=== PATIENT | female | born 1960 | race Two or more races ===

== ENCOUNTER 2021-02-08 05:37 | Inpatient (IN) | payer BC ==
[~2021-02-08] VITALS: Ht 165.1 cm; Wt 29.6 kg
[2021-02-08] MEDS ORDERED: methylPREDNISolone SOD SUCC 125 MG/2 ML VL IV ONE (06:00)
[2021-02-08 06:32] LABS: Basophils # (auto) 0.1 10 ^3/uL (0-0.2); Basophils % (auto) 1.2 % (0.0-2.0); Eosinophils # (auto) 0.3 10 ^3/uL (0-0.8); Hematocrit 39.6 % (36.0-46.0); Hemoglobin 13.9 g/dL (12.2-16.2); Lymphocytes # (auto) 2.7 10 ^3/uL (0.4-5.4); Lymphocytes % (auto) 39.7 % (10.0-50.0); Mean Corpuscular Hemoglobin 32.2 pg (28.0-32.0); Mean Corpuscular Hgb Conc. 35.1 g/dL (32.0-36.0); Mean Corpuscular Volume 91.8 fL (80.0-100.0); Monocytes # (auto) 0.6 10 ^3/uL (0-1.3); Monocytes % (auto) 9.1 % (0.0-12.0); Neutrophils # (auto) 3.1 10 ^3/uL (1.6-8.6); Nucleated Red Blood Cells % 0.1 %; Platelet Count (auto) 227 10^3/uL (140-450); Red Blood Cells 4.31 10^6/uL (4.0-5.20); Red Cell Distribution Width 12.8 % (11.8-14.3); White Blood Cell 6.8 10^3/uL (4.4-10.8)
[2021-02-08] MEDS ORDERED: cloNIDine HCL 0.1 MG TAB ONE (06:39)
[2021-02-08 06:44] LABS: Alanine Aminotransferase 28 U/L (13-56); Albumin 3.8 g/dL (3.4-5.0); Anion Gap 5 (5-15); Aspartate Aminotransferase 32 U/L (15-37); BUN/Creatinine Ratio 9.8; Blood Urea Nitrogen 9 mg/dL (7-18); Calcium 9.5 mg/dL (8.5-10.1); Carbon Dioxide 30 mmol/L (21-32); Chloride 105 mmol/L (98-107); GFR African American 81 mL/min; GFR Non-African American 67 mL/min; Glucose 102 mg/dL (74-106); Potassium 4.2 mmol/L (3.5-5.1); Sodium 140 mmol/L (136-145)
[2021-02-08] MEDS ORDERED: PANTOPRAZOLE 40 MG/10 ML VIAL INJ IV ONE (06:45)
[2021-02-08] MEDS ORDERED: cloNIDine HCL 0.1 MG TAB PO ONE (06:45)
[2021-02-08] MEDS ORDERED: EPINEPHrine HCL 1 MG/10 ML SYRG IV ONE (06:45)
[2021-02-08 06:48] LABS: INR 1.02 (0.9-1.15); Partial Thromboplastin Time 24.6 sec (23.0-31.2)
[2021-02-08 06:49] LABS: Alkaline Phosphatase 107 U/L (45-117); Bilirubin, Total 0.2 mg/dL (0.2-1.0); Total Protein 7.8 g/dL (6.4-8.2)
[2021-02-08] MEDS ORDERED: SODIUM CHLORIDE 0.9% 1,000 ML IV ONE ×2 (07:00)
[2021-02-08] MEDS ORDERED: LORazepam 2MG/ML-1ML VIAL IV ONE ×2 (07:00→21:00)
[2021-02-08] MEDS ORDERED: diphenhdrAMINE HCL 50 MG/1 ML VL IV ONE (07:00)
[2021-02-08] MEDS ORDERED: ENOXAPARIN SOD 80 MG/0.8ML SYRINGE SC ONE ×2 (10:00→13:00)
[2021-02-08] MEDS ORDERED: diphenhdrAMINE HCL 50 MG/1 ML VL IV PRN (13:00)
[2021-02-08] MEDS ORDERED: NITROGLYCERIN 0.4 MG SL TAB SL PRN (13:00)
[2021-02-08] MEDS ORDERED: HYDROcodone-ACET 5/325MG TAB PO PRN (13:00)
[2021-02-08] MEDS ORDERED: ONDANSETRON HCL 4 MG/2 ML VIAL IV PRN (13:00)
[2021-02-08] MEDS ORDERED: ACETAMINOPHEN 500 MG TAB PO PRN (13:00)
[2021-02-08] MEDS ORDERED: MORPHINE SULF INJ 2 MG/ML SYRINGE 1ML IV PRN ×2 (13:00)
[2021-02-08] MEDS ORDERED: hydrALAZINE HCL 20 MG/ML VL IV PRN (13:00)
[2021-02-08] MEDS ORDERED: ALUM & MAG HYDROX-SIMETH LIQ(MAALOX) 30 ML ONE (21:10)
[2021-02-08] MEDS ORDERED: ALUM & MAG HYDROX-SIMETH LIQ(MAALOX) 30 ML PO ONE (21:15)
[2021-02-08] MEDS: methylPREDNISolone SOD SUCC 125 MG/2 ML VL IV SCH (21:36)
[2021-02-08] MEDS: METOPROLOL TARTRATE 25 MG TAB PO SCH (21:36)
[2021-02-08] MEDS ORDERED: ATORVASTATIN 20 MG TAB PO SCH (22:00)
[2021-02-08 22:32] VITALS: BP 132/77
[2021-02-09 05:11] VITALS: BP 102/61
[2021-02-09 06:36] LABS: Basophils # (auto) 0 10 ^3/uL (0-0.2); Basophils % (auto) 0.2 % (0.0-2.0); Eosinophils # (auto) 0 10 ^3/uL (0-0.8); Hemoglobin 11.9 g/dL (12.2-16.2); Lymphocytes # (auto) 1.3 10 ^3/uL (0.4-5.4); Lymphocytes % (auto) 14.6 % (10.0-50.0); Mean Corpuscular Volume 91.3 fL (80.0-100.0); Monocytes # (auto) 0.1 10 ^3/uL (0-1.3); Monocytes % (auto) 1.5 % (0.0-12.0); Neutrophils # (auto) 7.5 10 ^3/uL (1.6-8.6); Neutrophils % (auto) 83.7 % (37.0-80.0); Platelet Count (auto) 211 10^3/uL (140-450); Red Blood Cells 3.73 10^6/uL (4.0-5.20); Red Cell Distribution Width 12.5 % (11.8-14.3); White Blood Cell 8.9 10^3/uL (4.4-10.8)
[2021-02-09 06:51] LABS: Partial Thromboplastin Time 25.6 sec (23.0-31.2)
[2021-02-09 06:57] LABS: Cholesterol 208 mg/dL (< 200); HDL Cholesterol 52 mg/dL (40-59); LDL Cholesterol 141 mg/dL (< 100); Potassium 3.6 mmol/L (3.5-5.1); Triglycerides 111 mg/dL (< 150)
[2021-02-09 06:59] LABS: BUN/Creatinine Ratio 22.7; Calcium 8.4 mg/dL (8.5-10.1)
[2021-02-09 09:00] VITALS: BP 105/62
[2021-02-09] MEDS: methylPREDNISolone SOD SUCC 125 MG/2 ML VL IV SCH (09:55)
[2021-02-09] MEDS: METOPROLOL TARTRATE 25 MG TAB PO SCH (09:57)
[2021-02-09] MEDS ORDERED: NICOTINE 14 MG/24HR TOPICAL PATCH TD SCH (10:00)
[2021-02-09] MEDS ORDERED: ASPirin-EC 81 mg tab PO SCH (10:00)
[2021-02-09] MEDS ORDERED: FAMOTIDINE 20 MG TAB PO SCH (10:00)
[2021-02-09 13:10] VITALS: BP 112/62
[2021-02-09 17:00] VITALS: BP 131/85
[2021-02-09 17:59] VITALS: BP 112/71
== END 2021-02-09 18:20 | disposition home or self-care (01) | DRG 915 ==
LOC: ER 05:37 → TELE 12:46 → TELE-EAST 21:30
PROVIDERS: ADMIT Nurse Practitioner Acute Care; ATTEND Hospitalist
DX: T78.3XXA Angioneurotic edema, initial encounter (principal); I50.21 Acute systolic (congestive) heart failure; I10 Essential (primary) hypertension; Z20.822 Contact with and (suspected) exposure to COVID-19; E78.5 Hyperlipidemia, unspecified; G62.9 Polyneuropathy, unspecified; G89.29 Other chronic pain; M54.9 Dorsalgia, unspecified; R13.10 Dysphagia, unspecified; J45.909 Unspecified asthma, uncomplicated; Y92.89 Other specified places as the place of occurrence of the external cause; Z82.49 Family history of ischemic heart disease and other diseases of the circulatory system; Z90.49 Acquired absence of other specified parts of digestive tract; Z79.899 Other long term (current) drug therapy
CPT/HCPCS: 36415; 71045; 80048; 80053; 80061; 83735; 83880; 84443; 84484; 85025; 85610; 85730; 86141; 87426; 93005; 93306; 96361; 96372; 96374; 96375; 96376; C9113; G0378